=== PATIENT | female | born 1965 | race Caucasian/White ===

== ENCOUNTER 2016-12-01 21:34 | Emergency (ER) | payer OTHER ==
[2016-12-01 22:48] LABS: BILIRUBIN NEGATIVE (NEGATIVE); BLOOD NEGATIVE Ery/uL (NEGATIVE); CLARITY CLEAR (CLEAR); GLUCOSE (U) NORMAL (NORMAL); KETONE (U) NEGATIVE (NEGATIVE); LEUKOCYTES NEGATIVE Leu/uL (NEGATIVE); NITRITE NEGATIVE (NEGATIVE); PROTEIN NEGATIVE (NEGATIVE); SPECIFIC GRAVITY <=1.005 (1.001-1.030); UROBILINOGEN 0.2 mg/dL (0.2-1.0)
[2016-12-01 22:58] LABS: COLOR STRAW (YELLOW)
[2016-12-01 23:43] LABS: BASOPHIL 0.3 % (0-2); EOSINOPHIL 1.4 % (0-5); HCT 40.3 % (37.0-47.0); LYMPHOCYTE 20.2 % (15-48); MCH 29.8 pg (25.0-31.0); MCHC 34.7 g/dL (32.0-36.0); MCV 85.7 fL (78.0-100.0); MONOCYTE 6.3 % (0-12); MPV 9.8 fL (6.0-9.5); NEUTROPHIL 71.8 % (41-80); PLT 254 K/uL (150-400); RDW 12.9 % (11.5-14.0); WBC 9.8 K/uL (4.0-10.5)
[2016-12-01 23:59] LABS: ALBUMIN 3.7 g/dL (3.5-5.0); CREATININE 0.6 mg/dL (0.5-1.0); GLOBULIN (CALCULATION) 2.4 g/dL (2.2-4.2); POTASSIUM 3.6 mmol/L (3.5-5.1); TOTAL PROTEIN 6.1 g/dL (6.4-8.3)
[2016-12-02 00:12] LABS: BILIRUBIN - TOTAL 0.7 mg/dL (0.1-1.0)
== END 2016-12-02 04:19 | disposition home or self-care (01) ==
LOC: FER 21:34
PROVIDERS: Emergency Medicine Emergency Medical Services
DX: K57.32 Diverticulitis of large intestine without perforation or abscess without bleeding (principal); I10 Essential (primary) hypertension; E86.9 Volume depletion, unspecified; Z79.899 Other long term (current) drug therapy
CPT/HCPCS: 36415; 80053; 81003; 83605; 85025; J1170; J1885; J2405; Q9967